=== PATIENT | female | born 1985 | race Hispanic/Latino ===

== ENCOUNTER 2021-12-24 05:46 | Inpatient (IN) | payer MEDICAID, OTHER ==
[~2021-12-24] VITALS: Ht 167.6 cm; Wt 127.0 kg
[2021-12-24] VITALS (22 sets, daily range): BP systolic 102–139; BP diastolic 52–91
[2021-12-24 06:16] LABS: APPEARANCE,URINE CLEAR (CLEAR); BILIRUBIN,URINE SMALL (NEGATIVE); COLOR,URINE YELLOW (YELLOW); GLUCOSE, URINE (UA) NEGATIVE (NEGATIVE); KETONES,URINE 5 mg/dL (NEGATIVE); LEUKOCYTE ESTERASE ,URINE NEGATIVE (NEGATIVE); NITRATE,URINE NEGATIVE (NEGATIVE); OCCULT BLOOD,URINE MODERATE (NEGATIVE); PH,URINE 5.5 (5.0-8.0); PROTEIN,URINE TRACE mg/dL (NEGATIVE); UROBILINOGEN,URINE 0.2 mg/dL (0.2-1.0)
[2021-12-24 06:16] LABS: BASOPHILS % (AUTO) 0.9 % (0.0-5.0); EOSINOPHILS % (AUTO) 0.3 % (0.0-8.0); LYMPHOCYTES % (AUTO) 17.3 % (21.0-51.0); MEAN CORPUSCULAR HEMOGLOBIN 26.1 pg (27.0-33.0); MEAN CORPUSCULAR HGB CONC 32.4 g/dL (32.0-36.0); MEAN CORPUSCULAR VOLUME 80.5 fL (79-99); MONOCYTES % (AUTO) 6.9 % (3.0-13.0); NEUTROPHILS % (AUTO) 74.2 % (40.0-77.0); PLATELET COUNT (AUTO) 357 K/uL (130-400); RED BLOOD CELL COUNT(AUTO) 5.22 MIL/uL (4.00-5.50); RED CELL DISTRIBUTION WIDTH 13.5 % (11.0-15.5); WHITE BLOOD COUNT (AUTO) 16.1 K/uL (4.8-10.8)
[2021-12-24] MEDS ORDERED: MORPHINE 4 MG SYG ONE (06:19)
[2021-12-24] MEDS ORDERED: ONDANSETRON 4MG INJ ONE ×2 (06:19→11:03)
[2021-12-24] MEDS ORDERED: KETOROLAC 30MG VIAL (30MG/ML) ONE (06:19)
[2021-12-24 06:25] LABS: CREATININE 1.5 mg/dL (0.5-1.5); POTASSIUM 3.9 mmol/L (3.5-5.1)
[2021-12-24 06:29] LABS: ALBUMIN 3.9 g/dL (3.5-5.0); TOTAL PROTEIN, SERUM 8.9 g/dL (6.0-8.3)
[2021-12-24] MEDS ORDERED: 0.9%NACL 1000ML 1,000 ML IV ONE (06:30)
[2021-12-24] MEDS ORDERED: MORPHINE 4 MG SYG IVP ONE (06:30)
[2021-12-24] MEDS ORDERED: ONDANSETRON 4MG INJ IVP ONE (06:30)
[2021-12-24] MEDS ORDERED: KETOROLAC 30MG VIAL (30MG/ML) IVP ONE (06:30)
[2021-12-24 06:37] LABS: BACTERIA,URINE Rare /HPF (None Seen); SQUAMOUS EPITHELIAL CELL,UR Moderate /HPF (0-2); WBC,URINE 0-1 /HPF (0-1)
[2021-12-24] MEDS ORDERED: KETOROLAC 15MG/ML VIAL (15MG/ML) IV PRN (08:00)
[2021-12-24] MEDS ORDERED: HYDROMORPHONE 0.5 MG SYG (0.5MG/0.5ML) IVP PRN (08:00)
[2021-12-24] MEDS ORDERED: LACTATED RINGERS 1000ML 1,000 ML IV SCH (08:00)
[2021-12-24] MEDS: CEFTRIAXONE 1G VIAL IVP SCH ×2 (08:52→20:04)
[2021-12-24] MEDS: ONDANSETRON 4MG INJ IVP PRN ×2 (08:52→20:05)
[2021-12-24] MEDS: 0.9%NACL 1000ML 1,000 ML IV SCH ×2 (08:52→18:25)
[2021-12-24 09:37] LABS: INR 0.96 (0.85-1.15); PROTHROMBIN TIME 10.5 SEC (9.6-11.6)
[2021-12-24 09:38] LABS: HEMOGLOBIN A1C 5.7 % (4.0-6.0); PARTIAL THROMBOPLASTIN TIME 27.5 SEC (26.3-35.5)
[2021-12-24 09:48] LABS: THYROID STIMULATING HORMONE 1.26 uIU/mL (0.36-3.74)
[2021-12-24] MEDS ORDERED: METOCLOPRAMIDE 10 MG/2 ML VIAL ONE (10:58)
[2021-12-24] MEDS ORDERED: CITRIC ACID/SODIUM CITRATE 30 ML UDCUP ONE (10:59)
[2021-12-24] MEDS ORDERED: SUCCINYLCHOLINE 200MG/10ML SYR ONE (11:03)
[2021-12-24] MEDS ORDERED: ROCURONIUM 10MG/1ML SYR 10 MG/ML ML ONE (11:03)
[2021-12-24] MEDS ORDERED: PROPOFOL 10 MG/ML 20ML VIAL IV ONE (11:03)
[2021-12-24] MEDS ORDERED: MIDAZOLAM HCL 1 MG/ML 2ML VIAL ONE (11:06)
[2021-12-24] MEDS ORDERED: FENTANYL CITRATE PF 50 MCG/1 ML 2ML VIAL ONE (11:09)
[2021-12-24] MEDS ORDERED: IOHEXOL-350 50ML VIAL IV ONE (11:22)
[2021-12-24] MEDS ORDERED: GLYCOPYRROLATE 1 MG/5 ML SYRINGE ONE (11:52)
[2021-12-24] MEDS ORDERED: NEOSTIGMINE 5MG/5ML SYR IV ONE (11:52)
[2021-12-24] MEDS ORDERED: PHENAZOPYRIDINE HCL 200 MG TABLET ONE (13:20)
[2021-12-24] MEDS ORDERED: DOCUSATE SODIUM 100 MG CAP PO PRN (14:00)
[2021-12-24 14:15] LABS: CREATININE 1.2 mg/dL (0.5-1.5); POTASSIUM 3.8 mmol/L (3.5-5.1)
[2021-12-24] MEDS: OXYBUTYNIN CHLORIDE 5 MG TABLET PO SCH (20:04)
[2021-12-24] MEDS: PHENAZOPYRIDINE HCL 200 MG TABLET PO SCH (20:04)
[2021-12-25] VITALS: BP 99/48
[2021-12-25] MEDS: 0.9%NACL 1000ML 1,000 ML IV SCH (03:44)
[2021-12-25 04:00] VITALS: BP 97/54
[2021-12-25 06:26] LABS: BASOPHILS % (AUTO) 1.1 % (0.0-5.0); EOSINOPHILS % (AUTO) 1.4 % (0.0-8.0); HEMATOCRIT 38.2 % (36-48); LYMPHOCYTES % (AUTO) 32.9 % (21.0-51.0); MEAN CORPUSCULAR HEMOGLOBIN 25.8 pg (27.0-33.0); MEAN CORPUSCULAR HGB CONC 31.2 g/dL (32.0-36.0); MEAN CORPUSCULAR VOLUME 82.7 fL (79-99); MONOCYTES % (AUTO) 5.9 % (3.0-13.0); NEUTROPHILS % (AUTO) 58.4 % (40.0-77.0); PLATELET COUNT (AUTO) 317 K/uL (130-400); RED BLOOD CELL COUNT(AUTO) 4.62 MIL/uL (4.00-5.50); RED CELL DISTRIBUTION WIDTH 13.9 % (11.0-15.5); WHITE BLOOD COUNT (AUTO) 10.4 K/uL (4.8-10.8)
[2021-12-25 06:35] LABS: ALBUMIN 3.3 g/dL (3.5-5.0); CREATININE 0.9 mg/dL (0.5-1.5); CRP QUANTITATIVE 31.6 mg/L (0.00-9.0); POTASSIUM 3.5 mmol/L (3.5-5.1); TOTAL PROTEIN, SERUM 7.8 g/dL (6.0-8.3)
[2021-12-25 07:43] LABS: ERYTHROCYTE SEDIMENTATION RATE 57 MM/HR (0-20)
[2021-12-25 08:00] VITALS: BP 128/79
[2021-12-25] MEDS: CEFTRIAXONE 1G VIAL IVP SCH (08:32)
[2021-12-25] MEDS: PHENAZOPYRIDINE HCL 200 MG TABLET PO SCH (08:33)
[2021-12-25] MEDS: OXYBUTYNIN CHLORIDE 5 MG TABLET PO SCH (08:35)
[2021-12-25] MEDS ORDERED: CEFD300C3 PO (10:15)
[2021-12-25] MEDS ORDERED: TAMS-1 PO (10:29)
[2021-12-25 12:00] VITALS: BP 119/66
== END 2021-12-25 13:36 | disposition home or self-care (01) | DRG 660 ==
LOC: EDH 05:46 → EDHIP 05:47 → 3DH 09:35
PROVIDERS: ADMIT Internal Medicine; ATTEND Internal Medicine
PROC: BT1D1ZZ Fluoroscopy of Right Kidney, Ureter and Bladder using Low Osmolar Contrast (ICD-10-PCS; 2021-12-24)
PROC: 0T768DZ Dilation of Right Ureter with Intraluminal Device, Via Natural or Artificial Opening Endoscopic (ICD-10-PCS; principal; 2021-12-24 11:17)
DX: N13.6 Pyonephrosis (principal); E87.1 Hypo-osmolality and hyponatremia; Z68.42 Body mass index [BMI] 45.0-49.9, adult; Z20.822 Contact with and (suspected) exposure to COVID-19; N17.9 Acute kidney failure, unspecified; E66.01 Morbid (severe) obesity due to excess calories; E86.0 Dehydration; Z98.51 Tubal ligation status; Z90.49 Acquired absence of other specified parts of digestive tract; Z87.442 Personal history of urinary calculi
CPT/HCPCS: 36415; 74176; 74420; 80048; 80053; 81001; 81025; 83036; 83690; 84145; 84443; 85025; 85610; 85651; 85730; 86140; 87088; 87635; A4344; A4354; C1758; C2617; G0378; J0330; J0696; J1170; J1885; J2250; J2270; J2405; J2704; J2710; J2765; J3010; J3490; J7030; J7120; Q9967